=== PATIENT | female | born 1965 | race Caucasian/White ===

== ENCOUNTER 2020-12-21 08:00 | Outpatient (CLI) | payer BC ==
--- NOTE | 2020-12-21 12:28 | XRAY Report ---
PROCEDURE: Ankle 3 View LT INDICATIONS: SPRAIN OF UNSPECIFIED LIGAMENT OF LEFT ANKLE TECHNIQUE: 3 views of the ankle were acquired. COMPARISON: None. FINDINGS: Bones: BB marker inferior to the lateral malleolus. No fractures or dislocations. Ankle mortise is normally aligned. No suspicious bony lesions. Soft tissues: Swelling at the lateral malleolus. No tibiotalar joint effusion. Achilles tendon appe ars normal. IMPRESSION: No acute osseous abnormality. Swelling at the lateral malleolus. Reviewed by: Angel Cohen MD on 12/21/2020 11:27 AM LOVE Approved by: Angel Cohen MD on 12/21/2020 11:27 AM LOVE Station ID: [id number]
== END 2020-12-21 23:59 | disposition home or self-care (01) ==
LOC: DI.S 08:00
PROVIDERS: ATTEND Nurse Practitioner
DX: S93.402A Sprain of unspecified ligament of left ankle, initial encounter (principal); M25.472 Effusion, left ankle

== ENCOUNTER 2021-01-02 10:22 | Outpatient (CLI) | payer BC ==
--- NOTE | 2021-01-03 08:42 | Mammography Report ---
BILATERAL DIGITAL SCREENING MAMMOGRAM 3D/2D: 01/02/2021 CLINICAL: Routine screening. Comparison is made to exams dated: 05/10/2012 ultrasound, 05/10/2012 mammogram, 06/08/2011 ultrasound, 06/08/2011 mammogram, 01/16/2009 ultrasound, and 01/16/2009 mammogram - Located within [facility]. T here are scattered fibroglandular elements in both breasts. No significant masses, calcifications, or other findings are seen in either breast. There has been no significant interval change. IMPRESSION: NEGATIVE There is no mammographic evidence of malignancy. A 1 year screening mammogram is recommended. This exam was interpreted at Station ID: [id number]. NOTE: For mammograms, a report in lay terms will be sent to the patient. Approximately 15% of breast malignancies will not be visualized mammographically. In the management of a palpable breast mass, a negative mammogram must not discourage biopsy of a clinically suspicious lesion. Electronically Signed By: Patrick Mixon M.D. aty/[email or web address]:01/02/2021 11:18:21 ACR BI-RADS Category 1: Negative 3341F PARENCHYMAL PATTERN: (A) - The breast(s) demonstrate(s) scattered fibroglandular densities. BI-RADS CATEGORY: (1) - 1 RECOMMENDATION: (ANNUAL) - Recommend routine annual screening mammography. [id number] 1 year screening LATERALITY: (B)
== END 2021-01-02 10:23 | disposition home or self-care (01) ==
LOC: DI 10:22
DX: Z12.31 Encounter for screening mammogram for malignant neoplasm of breast (principal)

== ENCOUNTER 2021-01-06 13:54 | Outpatient (CLI) | payer BC | END 2021-01-06 13:55 | disposition home or self-care (01) | LOC: COV 13:54 | PROVIDERS: ATTEND Internal Medicine Gastroenterology | DX: Z20.822 Contact with and (suspected) exposure to COVID-19 (principal) ==

== ENCOUNTER 2021-05-20 17:35 | Outpatient (CLI) | payer BC ==
--- NOTE | 2021-05-20 19:04 | XRAY Report ---
PROCEDURE: Hand 3 View RT INDICATIONS: STIFFNESS IN RIGHT HAND JOINT TECHNIQUE: 3 views of the hand(s) acquired. COMPARISON: None FINDINGS: Bones: No fractures or dislocations. Mild osteoarthritic changes are noted throughout right-hand and wrist joints. No gross bony erosive changes are seen. No suspicious bony lesions. Soft tissues: No suspicious soft tissue calcifications. 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 No fracture or dislocation. No definite b maryam erosive changes. Reviewed by: Christian Chu MD on 05/20/2021 7:03 PM PST Approved by: Christian Chu MD on 05/20/2021 7:03 PM PST Station ID: [id number]
== END 2021-05-20 17:36 | disposition home or self-care (01) ==
LOC: DI.S 17:35
PROVIDERS: ATTEND Internal Medicine
DX: M19.041 Primary osteoarthritis, right hand (principal)

== ENCOUNTER 2021-05-22 09:32 | Outpatient (CLI) | payer BC ==
[2021-05-22 16:38] LABS: RHEUMATOID FACTOR NEGATIVE (Negative)
== END 2021-05-22 09:33 | disposition home or self-care (01) ==
LOC: LAB.S 09:32
PROVIDERS: ATTEND Internal Medicine
DX: M25.641 Stiffness of right hand, not elsewhere classified (principal)
CPT/HCPCS: 36415; 85651; 86140; 86200; 86430

== ENCOUNTER 2023-06-19 07:00 | Outpatient (CLI) | payer BC | END 2023-06-19 23:59 | disposition home or self-care (01) | LOC: LAB.S 07:00 | PROVIDERS: ATTEND Physician Assistant Medical | DX: R31.9 Hematuria, unspecified (principal); R10.9 Unspecified abdominal pain | CPT/HCPCS: 87086 ==